=== PATIENT | female | born 1950 | race Caucasian/White ===

== ENCOUNTER → 2018-04-28 18:44 | Outpatient (REF) | payer OTHER, SELFPAY ==
[2018-04-28 19:12] LABS: Add Manual Diff / Slide Review NO; Basophils Absolute Auto 100 /uL (0-100); Basophils Percent Auto 1.1 % (0-2); Eosinophils Absolute Auto 200 /uL (0-450); Eosinophils Percent Auto 2.3 % (2-4); Hematocrit 43.5 % (36-46); Hemoglobin 14.7 g/dL (12.0-16.0); Lymphocytes Absolute Auto 1800 /uL (1100-4500); Lymphocytes Percent Auto 26.9 % (25-40); Mean Corpuscular HGB Conc 33.7 % (30-36); Mean Corpuscular Volume 97.9 fL (80-100); Monocytes Absolute Auto 600 /uL (0-900); Monocytes Percent Auto 9.6 % (3-14); Neutrophils Absolute Auto 4000 /uL (1500-7000); Neutrophils Percent Auto 60.1 % (50-75); Platelet Count 334 X10^3/uL (150-400); Red Blood Cell Count 4.44 X10^6/uL (4.0-5.2); Red Cell Distribution Width 12.8 % (11.6-14.8); White Blood Cell Count 6.7 X10^3/uL (4.5-11.0)
[2018-04-28 19:34] LABS: Alanine Aminotransferase 31 IU/L (9-52); Albumin 4.9 g/dL (3.5-5.0); Albumin Globulin Ratio 1.6 (1.0-2.8); Alkaline Phosphatase 79 U/L (38-126); Aspartate Aminotransferase 35 IU/L (14-36); BUN Creatinine Ratio 14.5 (6-22); Bilirubin Total 0.6 mg/dL (0.2-1.3); Blood Urea Nitrogen 16 mg/dL (7-17); Calcium 10.6 mg/dL (8.4-10.2); Carbon Dioxide 30 mmol/L (22-32); Chloride 90 mmol/L (98-107); Cholesterol 281 mg/dL (140-199); Estimated Glomerular Filt Rate 49.4 mL/min (>60); Globulin 3.1 g/dL (1.7-4.1); Glucose 95 mg/dL (80-110); HEMOLYSIS < 15 (0-50); Potassium 3.6 mmol/L (3.4-5.1); Sodium 134 mmol/L (137-145); Triglycerides 105 mg/dL (35-150)
[2018-04-28 19:42] LABS: HDL Cholesterol 114 mg/dL (40-60); LDL Cholesterol Calculated 146 mg/dL (<100)
[2018-04-28 19:59] LABS: Thyroid Stimulating Hormone 1.77 uIU/mL (0.47-4.68)
== END ==
LOC: LAB 18:44
PROVIDERS: Visit Provider Physician Assistant Medical
DX: Z00.00 Encounter for general adult medical examination without abnormal findings (principal); E78.5 Hyperlipidemia, unspecified; E03.9 Hypothyroidism, unspecified; I10 Essential (primary) hypertension
CPT/HCPCS: 36415; 80053; 80061; 84443; 85025

== ENCOUNTER 2018-08-07 06:12 | Day surgery (SDC) | payer OTHER, BC, SELFPAY ==
[2018-07-22 13:54] VITALS: BMI 21.6
[2018-08-07] VITALS (10 sets, daily range): BP systolic 108–150; BP diastolic 57–80; PULSE 58–72; RESP 8–15; TEMP 36.2–37; O2SAT 95–100; BMI 21.6
[2018-08-07] MEDS: LACTATED RINGERS 1,000 ML 42 ML IV ×2 (07:35→10:15)
--- NOTE | 2018-08-07 07:36 | PM.PREOP ---
Pre-operative Note Interval Note History & Physical reviewed/Exam performed by Physician: Yes Changes to H&P: No
--- NOTE | 2018-08-07 07:36 | PM.OP.1 ---
Operative Date/Time/Diagnoses Date of procedure: 08/07/18 Time of procedure: 07:37 Pre-op diagnosis: Left hallux abductovalgus with bunion, second hammertoe and predislocation second toe joint. Post-op diagnosis: same Procedure & Clinicians Procedure: Left first metatarsophalangeal joint fusion Left second proximal and interphalangeal joint fusion, flexor tendon transfer, second metatarsal osteotomy, metatarsophalangeal joint capsulorraphy Same procedure as scheduled: Yes Indications: Painful great toe and second toe joints, conservative measures failed to alleviate her pain and she wished to have surgical intervention at this time. Surgeon: Minoo Healy Click Yes if Unassisted: Yes Anesthesia Type: General Operative Notes Closure Type: primary Specimen(s): none sent Prosthetic devices, grafts, tissues, transplants, or devices: [place] plate and 4.0 x 1, 3.5 x 2, 2.7 x 2, 2.0 x 2 screws Ticron 3-0 Vicryl 4-0 Nylon 3-0, 4-0 Applied: implant(s) Estimated Blood Loss (mL): 30 Blood products transfused: none Tourniquet time (min): 108 Procedure in detail: The patient was brought to the operating room and placed on the operating table in the supine position. A tourniquet was placed about the patient's left thigh. After induction of general anesthesia the foot and ankle were prepped and draped in the usual aseptic manner. The tourniquet was inflated. Incision was made over the dorsal aspect of the left 1st metatarsophalangeal joint. The incision was deepened through subcutaneous tissues being careful to identify and retract all vital neurovascular structures. All bleeders were cauterized and ligated necessary. The capsule was opened. A saw was used to resect the medial eminence. A guidewire was placed in the 1st metatarsal head and a reamer was used to resect the cartilage from the 1st metatarsal head and prepare the joint. The same procedure was performed to the proximal phalanx base. These guidewires were then removed. Subchondral drilling was performed to either side with the guidewire as well as some fish scaling using a small osteotome. The area was irrigated with copious amount of normal sterile saline. Temporary fixation across the joint was placed with a guidewire and this was checked under C-arm to be in appropriate alignment. A plate was chosen and any further reduction of prominences dorsally was performed with a rasp and rongeur. Using the aid of fluoroscopy, the guide wire was used as cannulation for the drill for a lag screw from the distal medial to proximal lateral 1st metatarsal phalangeal joint. Confirmed appropriate in all 3 planes, a partially threaded screw was placed and the guidewire removed. Good strength and reduction of the former joint. Plate was placed and with the aid of fluoroscopy a series of locking screws and a nonlocking screw were placed across the plate and steadied the joint well. This was checked on C-arm. The area is irrigated with copious amounts normal sterile saline. Next attention was directed to the 2nd metatarsal head where an incision was made over the dorsal 2nd metatarsophalangeal joint into the second toe. The incision was deepened through subcutaneous tissues being careful to identify and retract all vital neural and vascular structures. All bleeders were cauterized and ligated as necessary. The extensor was transected at the proximal interphalangeal joint and reflected distally and proximally to allow for access to the joint. A saw was used to resect the head of the proximal phalanx and the base of the intermediate phalanx. The same procedure was performed to the distal interphalangeal joint. the flexor tendon was also dissected within the joint space and harvested distally and split to allow for transfer. The extensor digitorum longus was fairly tight so a Z-type slide lengthening was also performed. The at metatarsophalangeal joint capsule was entered and this had much more availability to move at this point but based on the need to further attempt the 2nd toe to reduce, the decision was made to move ahead with the metatarsal osteotomy. A saw was used to resect the head of the 2nd metatarsal and pushed back slightly proximally. This was temporarily fixated with a guidewire and then using standard AO technique, a 2.0 screw was placed across this. Guidewire was removed this was checked under C-arm and strength was good as well as compression. After irrigation with normal saline, the guidewire was placed in the base of the 2nd intermediate phalanx and driven out distally to the toe. This was then retrograded across the proximal phalanx. Checking on C-arm well this was performed, a drill was used over the guidewire and then the screw was placed for good compression. the guidewire was then removed. The flexor tendon was transferred on the medial and lateral aspect to the dorsal medial and dorsal lateral proximal phalangeal neck and head. This was secured with Tycron. The extensor digitorum longus was also repaired with Vicryl. The final securing were a couple of tensioning sutures on the plantar lateral aspect of the 2nd MTPJ, in an attempt to secure down the dorsal medial drift of the 2nd toe. The tourniquet was deflated and a prompt hyperemic S per sponged was seen to the foot. after irrigation with normal saline the subcutaneous and deep tissues were closed with Vicryl and nylon to the skin on each of the incisions. Her foot was placed in a sterile lightly compressive dressing with a small amount of Betadine with saline on some gauze around the 2nd toe for splintage. She was placed in a post surgical boot after the final dressings are rendered. She was transferred to the PACU with vital signs stable and vascular status intact to the foot. The tourniquet was deflated and prompt hyperemic response was seen to the foot. And no motion was noted at the 1st MTPJ. Subcutaneous closure was performed using Vicryl and nylon was used to close the skin. A sterile lightly compressive dressing was placed on the foot and he was placed in his postoperative boot. He was transferred to the PACU with vital signs stable and vascular status intact. Complications: none Condition: stable Disposition: PACU Plan for aftercare: Following a period of postoperative monitoring, the patient be discharged home on written and oral postoperative instructions including keeping the dressing dry and intact, no weight-bearing to the operative foot, icing and elevating the foot when seated home. DVT prevention techniques have been reviewed. For the 1st postoperative visit the dressing will be changed and close to the 2-3rd postoperative week we will likely remove the sutures. X-ray will be taken around the 4th week.
[2018-08-07] MEDS: CEFAZOLIN 2 GM/100 ML FROZ.PIGGY IV (07:50)
--- NOTE | 2018-08-07 08:32 | SUR.OPER ---
Supine on padded OR bed, head on pillow, arms secured on padded arm boards at <90 degrees abduction, legs uncrossed, bump under left hip, left leg is under control of surgeon, safety belt at thigh, tape over blanket over right lower leg.
[2018-08-07] MEDS: BUPIVACAINE 0.5% (PF) VIAL 30 ML INJ (08:45)
--- NOTE | 2018-08-07 10:26 | SUR.OPER ---
Mini C Arm 1.16
[2018-08-07] MEDS: fentaNYL 100 MCG/2 ML INJ 50 MCG IV ×2 (10:56→11:05)
[2018-08-07] MEDS: HYDROCODONE/ACET 5/325 TABLET 1 TAB PO ×2 (11:29→12:10)
== END 2018-08-07 12:56 | disposition home or self-care (01) ==
PROVIDERS: PCP Physician Assistant Medical; Visit Provider Podiatrist
PROC: (CPT 28750; principal; 2018-08-07 07:45)
PROC: 0QBP0ZZ Excision of Left Metatarsal, Open Approach (ICD-10-PCS; CPT 28292; 2018-08-07 07:45)
PROC: (CPT 27691; 2018-08-07 07:45)
DX: M20.12 Hallux valgus (acquired), left foot (principal); M21.612 Bunion of left foot; M20.42 Other hammer toe(s) (acquired), left foot; M25.872 Other specified joint disorders, left ankle and foot; I73.00 Raynaud's syndrome without gangrene; E03.9 Hypothyroidism, unspecified; I10 Essential (primary) hypertension; F32.9 Major depressive disorder, single episode, unspecified
CPT/HCPCS: 28750; 28285; 28308; 27691; J0690; J1100; J2250; J2405; J2704; J3010

== ENCOUNTER 2019-09-02 11:39 | Day surgery (SDC) | payer BC, SELFPAY ==
[2019-09-02 12:13] VITALS: BP 138/72; PULSE 76; RESP 16; TEMP 36.7; O2SAT 99; BMI 21.6
[2019-09-02] MEDS: LACTATED RINGERS 1,000 ML 200 ML IV (12:20)
--- NOTE | 2019-09-02 12:31 | PM.HP.1 ---
History of Present Illness History of Present Illness Date Patient Seen: 09/02/19 Time Patient Seen: 12:31 Chief complaint: [id number] Narrative: The patient presents for colorectal sreening. She had a previous colonoscopy 7 years ago that demonstrated adenomatous polyps.. No personal or family history of colon cancer. On further history denies any recent gastrointestinal symptoms. No nausea, vomiting, abdominal pain, loss of appetite, unexplained weight loss, change in bowel habits, diarrhea, constipation, melena, hematochezia, or bright red blood per rectum. Patient History Medical History Bunion, left (Acute) Depression (Acute) Hallux valgus of left foot (Acute) Hammertoe of second toe of left foot (Acute) Hearing loss (Acute) HTN (hypertension) (Acute) Raynaud's disease (Acute) Thyroid disease (Acute) Surgical History Hx of abdominoplasty (Acute ~1999) Hx of bilateral cataract extraction (Acute) Hx of section (Acute) Hx of cholecystectomy (Acute ~2010) Hx of tonsillectomy (Acute) Family & Social History Social History: household members spouse Tobacco & Substance use: Smoking Status Former smoker alcohol intake current alcohol intake frequency 0-2 drinks per day Substance Use Type does not use Meds Home Medications and Allergies Home Medications Medication Instructions Recorded Confirmed Type bupropion HCl [Wellbutrin SR] 300 mg PO SEEINSTR 07/22/18 09/02/19 History multivitamin 1 cap PO DAILY 07/22/18 09/02/19 History triamterene-hydrochlorothiazid 1 tab PO DAILY 07/22/18 09/02/19 History zolpidem [Ambien] 5 mg PO BEDTIME PRN 07/22/18 09/02/19 History levothyroxine 175 mcg PO DAILY 09/02/19 09/02/19 History lisinopril 40 mg PO DAILY 09/02/19 09/02/19 History Allergies Allergy/AdvReac Type Severity Reaction Status Date / Time bee venom protein (honey bee) Allergy Swelling, Verified 09/02/19 12:19 including tongue nickel Allergy Swelling Verified 09/02/19 12:19 Review of Systems Review of Systems Narrative: A 10 point review of systems is negative except as noted in the HPI Exam Vital Signs (past 8 hours): - 09/02/19 12:13 Temperature 98.0 F Pulse Rate 76 Respiratory Rate 16 Blood Pressure 138/72 Pulse Oximetry 99 Oxygen Delivery Method Room Air Narrative Exam Narrative: General-no acute distress, well nourished HEENT-moist mucous membranes, no scleral icterus Neck-supple, no lymphadenopathy Chest- non labored respirations, clear to auscultation bilaterally Cardiac-regular rate no peripheral edema Abdomen-soft, nontender, non distended Extremities-warm, well perfused Neurological-alert and oriented, no focal deficits Assessment & Plan Assessment & Plan narrative: The patient requires colorectal screening and colonoscopy is recommended. Technical details were discussed. Risks, benefits, alternatives explained. Risks including but not limited to myocardial infarction, aspiration, bleeding, pain, missed lesion, incomplete examination, need for further radiographic studies, colonic perforation, and need for major abdominal surgery were discussed. All questions were answered to their satisfaction, and they are in agreement with this plan. COVID-19 COVID-19 status: Negative
[2019-09-02] MEDS: MIDAZOLAM 5 MG/5 ML VIAL IV (14:09)
[2019-09-02] MEDS: fentaNYL 250 MCG/5 ML INJ IV (14:09)
--- NOTE | 2019-09-02 14:31 | PM.OP.ENDO ---
Operative Date/Time/Diagnoses Date of procedure: 09/02/19 Time of procedure: 14:31 Pre-op diagnosis: Screening colonoscopy Post-op diagnosis: same Procedure & Clinicians Study performed: Colonoscopy Same procedure as scheduled: Yes Indications: 69-year-old female last colonoscopy 7 years ago demonstrated adenomatous polyps here for routine screening. Surgeon: Junior Ludwig Procedure Notes SCOAP/Timeout: Performed Procedure in detail: Patient placed in left lateral decubitus position. Time out was performed. Procedural sedation was administered with Versed and Fentanyl. A rectal exam demonstrated no external hemorrhoids no internal masses. Colonoscopy scope was placed into the rectum and advanced through the colon to the cecum. The ileocecal valve was identified. The scope was then slowly withdrawn examining colon thoroughly in all directions. The colonoscopy was notable for the following 1. Sigmoid diverticulosis 2. Quality of prep excellent 3. Grade 1 internal hemorrhoids Scope withdrawal time: 6 Sedation minutes: 18 Findings: diverticulosis and internal hemorrhoids Specimen(s): none sent Complications: none Impression: Diverticulosis Post-procedure Recommendations: Colonscopy in 10 years Disposition: same day surgery
[2019-09-02 14:34] VITALS: BP 90/56; PULSE 69; RESP 12; TEMP 36.3; O2SAT 95
[2019-09-02 14:38] VITALS: BP 97/52; PULSE 69; RESP 12; O2SAT 95
[2019-09-02 15:02] VITALS: BP 101/63; PULSE 72; RESP 20; TEMP 36.7; O2SAT 97
== END 2019-09-02 15:03 | disposition home or self-care (01) ==
PROVIDERS: PCP Family Medicine; Referring Provider Family Medicine; Visit Provider Surgery
PROC: 0DJD8ZZ Inspection of Lower Intestinal Tract, Via Natural or Artificial Opening Endoscopic (ICD-10-PCS; CPT 45378; principal; 2019-09-02 13:00)
DX: Z12.11 Encounter for screening for malignant neoplasm of colon (principal); K57.30 Diverticulosis of large intestine without perforation or abscess without bleeding; K64.0 First degree hemorrhoids
CPT/HCPCS: 45378; 99152; J2250; J3010

== ENCOUNTER → 2020-06-16 14:48 | Outpatient (ROUT) | payer BC, SELFPAY ==
[2020-06-16 14:57] LABS: Add Manual Diff / Slide Review NO; Basophils Absolute Auto 0 /uL (0-100); Basophils Percent Auto 1.1 % (0-2); Eosinophils Absolute Auto 200 /uL (0-450); Eosinophils Percent Auto 3.5 % (2-4); Hematocrit 41.3 % (36-46); Hemoglobin 13.4 g/dL (12.0-16.0); Lymphocytes Absolute Auto 1100 /uL (1100-4500); Lymphocytes Percent Auto 25.9 % (25-40); Mean Corpuscular HGB Conc 32.5 % (30-36); Mean Corpuscular Hemoglobin 32.4 PG (26-34); Mean Corpuscular Volume 99.6 fL (80-100); Monocytes Absolute Auto 500 /uL (0-900); Monocytes Percent Auto 11.8 % (3-14); Neutrophils Absolute Auto 2600 /uL (1500-7000); Neutrophils Percent Auto 57.7 % (50-75); Platelet Count 247 X10^3/uL (150-400); Red Blood Cell Count 4.15 X10^6/uL (4.0-5.2); Red Cell Distribution Width 12.9 % (11.6-14.8); White Blood Cell Count 4.4 X10^3/uL (4.5-11.0)
[2020-06-16 15:08] LABS: Alanine Aminotransferase 31 IU/L (<35); Albumin Globulin Ratio 1.5 (1.0-2.8); Alkaline Phosphatase 72 U/L (38-126); Aspartate Aminotransferase 46 IU/L (14-36); BUN Creatinine Ratio 21.5 (6-22); Bilirubin Total 0.5 mg/dL (0.2-1.3); Blood Urea Nitrogen 23 mg/dL (7-17); Calcium 9.5 mg/dL (8.4-10.2); Carbon Dioxide 27 mmol/L (22-32); Chloride 95 mmol/L (98-107); Cholesterol 269 mg/dL (140-199); Estimated Glomerular Filt Rate 50.7 mL/min (>60); Globulin 2.7 g/dL (1.7-4.1); Glucose 97 mg/dL (80-110); HDL Cholesterol 94 mg/dL (40-60); HEMOLYSIS < 15 (0-50); LDL Cholesterol Calculated 153 mg/dL (<100); Potassium 3.7 mmol/L (3.4-5.1); Sodium 131 mmol/L (137-145); Total Protein 6.7 g/dL (6.3-8.2); Triglycerides 110 mg/dL (35-150)
[2020-06-16 15:38] LABS: TSH w/ Reflex to FT4 < 0.02 uIU/mL (0.47-4.68)
[2020-06-16 16:38] LABS: Free T4, Direct Thyroxine 2.12 ng/dL (0.78-2.19)
== END ==
PROVIDERS: PCP Family Medicine; Visit Provider Internal Medicine
DX: I10 Essential (primary) hypertension (principal); E78.5 Hyperlipidemia, unspecified; E03.9 Hypothyroidism, unspecified; R23.8 Other skin changes
CPT/HCPCS: 80053; 80061; 84439; 84443; 85025

== ENCOUNTER → 2021-03-15 09:50 | Outpatient (CLI) | payer BC, SELFPAY | PROVIDERS: PCP Internal Medicine; Referring Provider Internal Medicine; Visit Provider Internal Medicine | DX: Z78.0 Asymptomatic menopausal state (principal); E07.9 Disorder of thyroid, unspecified; Z87.891 Personal history of nicotine dependence; Z13.820 Encounter for screening for osteoporosis | CPT/HCPCS: 77080 ==

== ENCOUNTER 2024-05-17 10:15 | Outpatient (RCR) | payer BC, SELFPAY | END 2024-05-17 15:06 | LOC: CAR 10:15 | PROVIDERS: Referring Provider Thoracic Surgery (Cardiothoracic Vascular Surgery); Visit Provider Thoracic Surgery (Cardiothoracic Vascular Surgery) | DX: Z95.2 Presence of prosthetic heart valve (principal) | CPT/HCPCS: 93798 ==